=== PATIENT | male | born 1950 | race Caucasian/White ===

== ENCOUNTER 2020-10-03 13:17 | Inpatient (IN) ==
[2020-10-03] MEDS ORDERED: SODIUM CHLORIDE 0.9% 1,000 ML IV STA (13:46)
[2020-10-03] MEDS ORDERED: cefTRIAXone 1,000 MG in SODIUM CHLORIDE 0.9% 100 ML IV STA (13:58)
[2020-10-03 14:03] LABS: Basophils % 0.2 % (0.0-0.8); Hematocrit 38.7 VOL% (42.0-52.0); Hemoglobin 12.8 GM/DL (14.0-18.0); Immature Granulocytes % 0.6 %; Immature Granulocytes Absolute 0.04 #; Lymphocytes # 0.4 10*3/uL (1.4-4.0); Lymphocytes % 5.9 % (21.2-54.2); Mean Corpuscular HGB Conc 33.1 GM/DL (32-36); Mean Corpuscular Volume 93.9 FL (87-102); Mean Platelet Volume 9.3 FL (9.6-12.0); Monocytes % 6.9 % (1.7-12.7); Neutrophils % 86.4 % (38.7-73.9); Platelet Count 156 T/CUMM (130-400); Red Blood Count 4.12 MC/CUMM (3.8-5.5); Red Cell Distribution Width 12.9 % (9.3-17.3); White Blood Count 6.5 T/CUMM (4-12)
[2020-10-03 14:21] LABS: Albumin 3.3 G/DL (3.4-5.0); Bilirubin,Total 0.7 MG/DL (0.20-1.00); Calcium 8.3 MG/DL (8.5-10.1); Osmolality,Calculated 275.7 MOS/KG (273-304); Potassium 3.6 MMOL/L (3.5-5.1); Total Protein 6.6 G/DL (6.4-8.2)
[2020-10-03 14:52] LABS: Bacteria,Urine Occasional /HPF (Few); Bilirubin,Urine Negative (Negative); Blood, Urine Large mg/dL (Negative); Glucose,Urine (UA) Negative (Negative); Hyaline Casts,Urine 1 /LPF (0-3); Ketones,Urine 5 mg/dL (Negative); Mucus,Urine Occasional /LPF (Occasional); Nitrite,Urine Negative (Negative); Protein,Urine 30 MG/DL; RBC,Urine 23 /HPF (0-4); Squamous Epithelial Cell,Urine Occasional /HPF (0-10); Urine Appearance CLEAR (Clear); Urine Color Yellow (Yellow); Urine Specific Gravity 1.019 (1.001-1.035); Urine Urobilinogen < 2.0 EU/DL (0.2-1.0)
[2020-10-03] MEDS ORDERED: ACETAMINOPHEN 500 MG TABLET ONE (14:53)
[2020-10-03] MEDS ORDERED: ACETAMINOPHEN 500 MG TABLET PO STA (14:54)
[2020-10-03] MEDS ORDERED: PIPERACILLIN/TAZOBACTAM 3,375 MG in SODIUM CHLORIDE 0.9% 100 ML IV SCH (15:00)
[2020-10-03] MEDS ORDERED: DEXTROSE 50% 25 GM/50 ML VIAL IV PRN (15:01)
[2020-10-03] MEDS ORDERED: ONDANSETRON 4 MG/2 ML VIAL IV PRN (15:01)
[2020-10-03] MEDS ORDERED: ACETAMINOPHEN 325 MG TABLET PO PRN (15:01)
[2020-10-03] MEDS ORDERED: GLUCAGON 1 MG VIAL IM PRN (15:01)
[2020-10-03] MEDS ORDERED: DOCUSATE SODIUM 100 MG CAPSULE PO PRN (15:01)
[2020-10-03] MEDS ORDERED: MORPHINE 2 MG/1 ML SYRINGE IV PRN (15:42)
[2020-10-03] MEDS: SODIUM CHLORIDE 0.45% 1,000 ML IV SCH (15:49)
[2020-10-03] MEDS ORDERED: GENTAMICIN INJ 80 MG/50 ML PREMIX IV ONE (16:16)
[2020-10-03] MEDS ORDERED: ONDANSETRON 4 MG/2 ML VIAL ONE (16:39)
[2020-10-03] MEDS ORDERED: propofoL 200 MG/20 ML VIAL IV ONE (16:39)
[2020-10-03] MEDS ORDERED: MIDAZOLAM 2 MG/2 ML VIAL ONE (16:39)
[2020-10-03] MEDS ORDERED: SEVOFLURANE 1 UNIT/15 MINUTE INH ONE ×2 (16:39→17:08)
[2020-10-03] MEDS ORDERED: fentaNYL 100 MCG/2 ML VIAL ONE (16:39)
[2020-10-03] MEDS ORDERED: LIDOCAINE 2% 5 ML VIAL ONE (16:39)
[2020-10-03] MEDS ORDERED: GENTAMICIN 80 MG/2 ML VIAL ONE (16:49)
[2020-10-03] MEDS ORDERED: PHENYLEPHRINE 1 MG/10 ML SYRINGE IV ONE (17:08)
[2020-10-03 17:39] LABS: Bilirubin,Urine Negative (Negative); Blood, Urine Moderate mg/dL (Negative); Glucose,Urine (UA) Negative (Negative); Ketones,Urine Negative (Negative); Nitrite,Urine Negative (Negative); Protein,Urine Negative; RBC,Urine 41 /HPF (0-4); Squamous Epithelial Cell,Urine Occasional /HPF (0-10); Urine Appearance CLEAR (Clear); Urine Color Colorless (Yellow); Urine Specific Gravity 1.004 (1.001-1.035); Urine Urobilinogen < 2.0 EU/DL (0.2-1.0)
[2020-10-03] MEDS: MEROPENEM 500 MG in SODIUM CHLORIDE 0.9% 100 ML IV SCH (18:40)
[2020-10-03] MEDS: TAMSULOSIN 0.4 MG CAPSULE PO SCH (20:24)
[2020-10-03] MEDS: ENOXAPARIN 30 MG/0.3 ML SYRINGE SUBCUT SCH (20:24)
[2020-10-03] MEDS ORDERED: IBUPROFEN 800 MG TABLET PO PRN (22:41)
[2020-10-04 05:34] LABS: Basophils % 0.4 % (0.0-0.8); Eosinophils % 0.2 % (0.00-10.9); Hematocrit 35.9 VOL% (42.0-52.0); Hemoglobin 11.6 GM/DL (14.0-18.0); Immature Granulocytes % 0.8 %; Immature Granulocytes Absolute 0.04 #; Lymphocytes # 0.8 10*3/uL (1.4-4.0); Lymphocytes % 14.7 % (21.2-54.2); Mean Corpuscular HGB Conc 32.3 GM/DL (32-36); Mean Platelet Volume 9.7 FL (9.6-12.0); Monocytes % 9.8 % (1.7-12.7); Neutrophils % 74.1 % (38.7-73.9); Platelet Count 123 T/CUMM (130-400); Red Blood Count 3.74 MC/CUMM (3.8-5.5); Red Cell Distribution Width 13.2 % (9.3-17.3); White Blood Count 5.2 T/CUMM (4-12)
[2020-10-04] MEDS: SODIUM CHLORIDE 0.45% 1,000 ML IV SCH ×2 (05:52→20:27)
[2020-10-04] MEDS: MEROPENEM 500 MG in SODIUM CHLORIDE 0.9% 100 ML IV SCH ×5 (05:53→23:24)
[2020-10-04 05:59] LABS: Calcium 8.2 MG/DL (8.5-10.1); Osmolality,Calculated 282.1 MOS/KG (273-304); Thyroid Stimulating Hormone 0.294 uIU/ml (0.358-3.74)
[2020-10-04 06:59] LABS: Band Neutrophils 22 % (0-10); Lymphocytes 17 % (20-55); Platelet Estimate Adequate; Segmented Neutrophils 54 % (50-85); Total Cells Counted 100
[2020-10-04 07:00] LABS: Anisocytosis Slight; Spherocytes Few
[2020-10-04] MEDS ORDERED: VANCOMYCIN INJ 1,000 MG in SODIUM CHLORIDE 0.9% 250 ML IV SCH (12:00)
[2020-10-04] MEDS: VANCOMYCIN INJ 1,500 MG in SODIUM CHLORIDE 0.9% 500 ML IV SCH (14:26)
[2020-10-04] MEDS ORDERED: OXYBUTYNIN 5 MG TABLET PO PRN (15:06)
[2020-10-04] MEDS: TAMSULOSIN 0.4 MG CAPSULE PO SCH (20:27)
[2020-10-04] MEDS: ENOXAPARIN 30 MG/0.3 ML SYRINGE SUBCUT SCH (20:27)
[2020-10-05] MEDS: VANCOMYCIN INJ 1,500 MG in SODIUM CHLORIDE 0.9% 500 ML IV SCH ×2 (01:22→14:20)
[2020-10-05 05:33] LABS: Basophils % 0.2 % (0.0-0.8); Eosinophils # 0.1 10*3/uL (0.0-0.87); Eosinophils % 2.2 % (0.00-10.9); Hematocrit 35.9 VOL% (42.0-52.0); Hemoglobin 11.6 GM/DL (14.0-18.0); Immature Granulocytes % 0.6 %; Immature Granulocytes Absolute 0.03 #; Lymphocytes # 1.5 10*3/uL (1.4-4.0); Lymphocytes % 27.6 % (21.2-54.2); Mean Corpuscular HGB Conc 32.3 GM/DL (32-36); Mean Platelet Volume 9.5 FL (9.6-12.0); Monocytes % 13.2 % (1.7-12.7); Neutrophils % 56.2 % (38.7-73.9); Platelet Count 130 T/CUMM (130-400); Red Blood Count 3.82 MC/CUMM (3.8-5.5); Red Cell Distribution Width 12.9 % (9.3-17.3); White Blood Count 5.4 T/CUMM (4-12)
[2020-10-05] MEDS: MEROPENEM 500 MG in SODIUM CHLORIDE 0.9% 100 ML IV SCH ×4 (05:40→23:53)
[2020-10-05 05:54] LABS: Microcytosis Slight; Platelet Estimate Normal
[2020-10-05 06:00] LABS: Calcium 8.5 MG/DL (8.5-10.1); Osmolality,Calculated 279.3 MOS/KG (273-304); Potassium 4.2 MMOL/L (3.5-5.1)
[2020-10-05] MEDS: ROSUVASTATIN 10 MG TABLET PO SCH (08:28)
[2020-10-05] MEDS: hydrOXYzine HCL 25 MG TABLET PO SCH (08:28)
[2020-10-05] MEDS: PENTOSAN POLYSULFATE SODIUM 100 MG PO SCH (08:28)
[2020-10-05 10:48] LABS: Free T4 (Free Thyroxine) 1.19 NG/DL (0.76-1.46)
[2020-10-05] MEDS ORDERED: LACTOBACILLUS RHAMNOSUS GG CAPSULE PO SCH (11:00)
[2020-10-05] MEDS: SODIUM CHLORIDE 0.45% 1,000 ML IV SCH (11:03)
[2020-10-05] MEDS: LACTOBACILLUS ACIDOPHILUS/BULGARICUS CAPLET PO SCH ×2 (11:03→20:13)
[2020-10-05] MEDS: ENOXAPARIN 30 MG/0.3 ML SYRINGE SUBCUT SCH (20:13)
[2020-10-05] MEDS: TAMSULOSIN 0.4 MG CAPSULE PO SCH (20:13)
[2020-10-06] MEDS: VANCOMYCIN INJ 1,500 MG in SODIUM CHLORIDE 0.9% 500 ML IV SCH (01:29)
[2020-10-06] MEDS: MEROPENEM 500 MG in SODIUM CHLORIDE 0.9% 100 ML IV SCH (06:17)
[2020-10-06 06:29] LABS: Basophils % 0.4 % (0.0-0.8); Eosinophils # 0.2 10*3/uL (0.0-0.87); Eosinophils % 3.3 % (0.00-10.9); Hematocrit 33.6 VOL% (42.0-52.0); Hemoglobin 11.2 GM/DL (14.0-18.0); Immature Granulocytes % 0.2 %; Immature Granulocytes Absolute 0.01 #; Lymphocytes # 1.4 10*3/uL (1.4-4.0); Lymphocytes % 27.6 % (21.2-54.2); Mean Corpuscular HGB Conc 33.3 GM/DL (32-36); Mean Corpuscular Volume 93.1 FL (87-102); Mean Platelet Volume 9.9 FL (9.6-12.0); Neutrophils % 57.5 % (38.7-73.9); Platelet Count 159 T/CUMM (130-400); Red Blood Count 3.61 MC/CUMM (3.8-5.5); Red Cell Distribution Width 12.5 % (9.3-17.3); White Blood Count 5.1 T/CUMM (4-12)
[2020-10-06 06:59] LABS: Calcium 8.8 MG/DL (8.5-10.1); Osmolality,Calculated 284.8 MOS/KG (273-304); Potassium 3.3 MMOL/L (3.5-5.1)
[2020-10-06] MEDS ORDERED: POTASSIUM CHLORIDE 20 MEQ TABLET PO ONE (07:54)
[2020-10-06] MEDS: ROSUVASTATIN 10 MG TABLET PO SCH (10:50)
[2020-10-06] MEDS: LACTOBACILLUS ACIDOPHILUS/BULGARICUS CAPLET PO SCH ×2 (10:50→21:04)
[2020-10-06] MEDS: hydrOXYzine HCL 25 MG TABLET PO SCH (10:50)
[2020-10-06] MEDS: PENTOSAN POLYSULFATE SODIUM 100 MG PO SCH (10:57)
[2020-10-06] MEDS: SODIUM CHLORIDE 0.45% 1,000 ML IV SCH (10:58)
[2020-10-06] MEDS: PENICILLIN G POTASSIUM INJ 4,000,000 UNIT in SODIUM CHLORIDE 0.9% 100 ML IV SCH ×3 (14:09→21:03)
[2020-10-06] MEDS ORDERED: LOSARTAN 50 MG TABLET PO SCH (14:30)
[2020-10-06] MEDS: LOSARTAN 50 MG TABLET PO SCH (14:32)
[2020-10-06] MEDS: ENOXAPARIN 30 MG/0.3 ML SYRINGE SUBCUT SCH (21:04)
[2020-10-06] MEDS: TAMSULOSIN 0.4 MG CAPSULE PO SCH (21:04)
[2020-10-07] MEDS: PENICILLIN G POTASSIUM INJ 4,000,000 UNIT in SODIUM CHLORIDE 0.9% 100 ML IV SCH ×3 (00:32→09:39)
[2020-10-07 05:38] LABS: Basophils % 0.3 % (0.0-0.8); Eosinophils # 0.2 10*3/uL (0.0-0.87); Eosinophils % 3.1 % (0.00-10.9); Hematocrit 34.3 VOL% (42.0-52.0); Hemoglobin 11.3 GM/DL (14.0-18.0); Immature Granulocytes % 0.5 %; Immature Granulocytes Absolute 0.03 #; Lymphocytes # 1.6 10*3/uL (1.4-4.0); Lymphocytes % 27.8 % (21.2-54.2); Mean Corpuscular HGB Conc 32.9 GM/DL (32-36); Mean Platelet Volume 9.4 FL (9.6-12.0); Monocytes % 10.1 % (1.7-12.7); Neutrophils % 58.2 % (38.7-73.9); Platelet Count 184 T/CUMM (130-400); Red Blood Count 3.73 MC/CUMM (3.8-5.5); Red Cell Distribution Width 12.6 % (9.3-17.3); White Blood Count 5.8 T/CUMM (4-12)
[2020-10-07 06:01] LABS: Hypochromasia Slight
[2020-10-07 06:02] LABS: Microcytosis Slight; Platelet Estimate Adequate
[2020-10-07 06:09] LABS: Calcium 8.8 MG/DL (8.5-10.1)
[2020-10-07 06:10] LABS: Osmolality,Calculated 285.8 MOS/KG (273-304); Potassium 3.7 MMOL/L (3.5-5.1)
[2020-10-07 08:25] VITALS: BP 155/77
[2020-10-07] MEDS: LOSARTAN 50 MG TABLET PO SCH (09:39)
[2020-10-07] MEDS: hydrOXYzine HCL 25 MG TABLET PO SCH (09:39)
[2020-10-07] MEDS: ROSUVASTATIN 10 MG TABLET PO SCH (09:39)
[2020-10-07] MEDS: LACTOBACILLUS ACIDOPHILUS/BULGARICUS CAPLET PO SCH (09:39)
[2020-10-07] MEDS: PENTOSAN POLYSULFATE SODIUM 100 MG PO SCH (10:14)
== END 2020-10-07 12:15 | disposition home or self-care (01) | DRG 659 ==
LOC: EDBD → EDUNIT# → N.ED 13:17 → N.EDINP 14:59 → SUATTDRO 14:59 → N.EDINP 16:35 → N.3E 18:11
PROVIDERS: ADMIT Hospitalist; ATTEND Internal Medicine